=== PATIENT | male | born 1980 | race Caucasian/White ===

== ENCOUNTER 2023-07-06 00:53 | Emergency (ER) | payer OTHER, SELFPAY ==
[2023-07-06 00:54] VITALS: BMI 22.0
[2023-07-06 01:00] VITALS: BP 137/98
[2023-07-06 01:27] LABS: Urine Albumin Negative (Neg - Trace); Urine Bilirubin Negative (Negative); Urine Character Clear (Clear); Urine Color Yellow; Urine Glucose Negative (Negative); Urine Ketone Trace (Negative); Urine Leukocyte Negative (Negative); Urine Nitrite Negative (Negative); Urine Occult Blood Negative (Negative); Urine Specific Gravity 1.025 (<1.030); Urine Urobilinogen Negative (Neg - 1+)
[2023-07-06 03:27] VITALS: BP 131/78
--- NOTE | 2023-07-06 03:55 | ED.GENMED ---
History of Present Illness
<SENG Hoang - Last Filed: 07/06/23 06:25>
General
Chief Complaint: Flank Pain
Source: patient and records
Exam Limitations: none
Time Seen by Provider: 07/06/23 03:44
Travel History
Have you had any contact with someone who has COVID-19?: No
Do you have any symptoms of coronavirus? Fever > 100 degrees, chills, cough, shortness of breath, sore throat, loss of taste or smell, muscle aches, or headache?: No
History of Present Illness
History of Present Illness:
43 year old male with hx of kidney stones who presents with sudden onset of L flank pain that began at 1300 Monday. Pain is nonradiating, sharp, and 8/10 in sensation. States between 5196-4303 pain was intermittent. From 1999 to 99 pain was
constant. Currently, pt denies any pain. States he is monitoring his pain and has been pain free for about 20 minutes. Pain feels like previous kidney stone pain in 2019. He has not had any pain since then. Pt took Ibuprofen with minimal relief of
his symptoms. States walking and movement helps alleviate the pain. Denies fevers/chills, n/v/d, dysuria, hematuria.
Records review shows pt had a similar episode of L flank pain in 2019. At the time, CT showed 2-3 mm stone at L uterovesical junction and small nonobstructing lower pole R renal calculi. Pt had laser lithotripsy, insertion of R double-J ureteral
stent, and R retrograde pyelogram.
Past History
<SENG Hoang - Last Filed: 07/06/23 06:25>
Past History
ED Past Medical History: None
Social History
Tobacco: Non-smoker
Alcohol: None
Drug: None
Living: with family
Review of Systems
<SENG Hoang - Last Filed: 07/06/23 06:25>
Review of Systems
Allergies reviewed?: Yes
All Other Systems: ROS reviewed and negative except as documented in HPI and ROS
Constitutional: Reports no symptoms
EENT: Reports no symptoms
Respiratory: Reports no symptoms
Cardiac: Reports no symptoms
ABD/GI: Reports abdominal pain (L flank)
: Reports no symptoms
Musculoskeletal: Reports no symptoms
Skin: Reports no symptoms
Neurological: Reports no symptoms
Endocrine: Reports no symptoms
Hematologic/Lymphatic: Reports no symptoms
Psychiatric: Reports no symptoms
Phy Exam
<SENG Hoang - Last Filed: 07/06/23 06:25>
General Physical Exam
General Presentation: well appearing and no apparent distress
General age: appears stated age
General Skin: warm and dry
General Habitus: normal
General Mental: alert
General Hydration: appears well hydrated
Cardiovascular Exam
Cardiovascular Exam: regular rate/rhythm, no edema, no gallop and no murmur
Pulmonary Exam
Pulmonary Exam: lungs clear, no respiratory distress, no rales, no crackles, no rhonchi, no wheezing and no cough
Gastrointestinal Exam
Gastrointestinal Exam: normal bowel sounds, non tender, soft, no organomegaly, no pulsatile mass, non distended and no cva tenderness
Neurological Exam
Neurological Exam: alert and oriented x3
Skin Exam
Skin Exam: normal color and warm/dry
Psychiatric Exam
Psychiatric Exam: normal mood/affect
Course
<SENG Hoang - Last Filed: 07/06/23 06:25>
Orders/Labs/Results
Orders:
Orders
07/06/23 01:06
Urinalysis Reflex To Culture Urgent
Date Specimen was Collected: 07/06/23
Time Specimen was Collected: 01:04
07/06/23 04:20
CT Abd/pel Without Iv Or Oral Urgent
Comment:
Reason For Exam: acute left flank pain
07/06/23 05:06
Ketorolac [Toradol] 30 mg IV NOW STA
07/06/23 05:32
Basic Metabolic Panel Urgent
Abnormal Lab Results
07/06/23
01:06
Urine Ketones Trace A
(Negative)
07/06/23 05:32
Vital Signs
Initial and Last Documented VS:
Initial Vital Signs
Temp Pulse Resp BP Pulse Ox
98.8 F 74 16 137/98 99
07/06/23 01:00 07/06/23 01:00 07/06/23 01:00 07/06/23 01:00 07/06/23 01:00
Last Documented Vital Signs
Temp Pulse Resp BP Pulse Ox
97.7 F 84 16 123/81 100
07/06/23 04:42 07/06/23 04:42 07/06/23 04:42 07/06/23 04:42 07/06/23 04:42
<Jenise Gant, DO - Last Filed: 07/06/23 06:26>
Orders/Labs/Results
Orders:
Orders
07/06/23 01:06
Urinalysis Reflex To Culture Urgent
Date Specimen was Collected: 07/06/23
Time Specimen was Collected: 01:04
07/06/23 04:20
CT Abd/pel Without Iv Or Oral Urgent
Comment:
Reason For Exam: acute left flank pain
07/06/23 05:06
Ketorolac [Toradol] 30 mg IV NOW STA
07/06/23 05:32
Basic Metabolic Panel Urgent
Abnormal Lab Results
07/06/23
01:06
Urine Ketones Trace A
(Negative)
07/06/23 05:32
Vital Signs
Initial and Last Documented VS:
Initial Vital Signs
Temp Pulse Resp BP Pulse Ox
98.8 F 74 16 137/98 99
07/06/23 01:00 07/06/23 01:00 07/06/23 01:00 07/06/23 01:00 07/06/23 01:00
Last Documented Vital Signs
Temp Pulse Resp BP Pulse Ox
97.7 F 84 16 123/81 100
07/06/23 04:42 07/06/23 04:42 07/06/23 04:42 07/06/23 04:42 07/06/23 04:42
<SENG Hoang - Last Filed: 07/06/23 06:25>
MDM/Problems Addressed
Differential Diagnosis Includes:
L kidney stone
MDM/Problems Addressed:
43 year old male who presents with L kidney pain that began 1299.
Chronic conditions affecting care: Other
<SENG Hoang - Last Filed: 07/06/23 06:25>
*Critical Care Note
Total Time (30-74mins, 75-104mins- exclusive of procedures): Not Applicable
<Jneise Gant DO - Last Filed: 07/06/23 06:26>
*Radiology
Radiology exam reviewed: radiology read reviewed
*Pulse Oximetry
Patient hypoxic: no
ED Attending Note
<SENG Hoang - Last Filed: 07/06/23 06:25>
-
Portions of this chart may have been created with voice recognition software.� Occasional wrong word or��sound alike� substitutions may have occurred due to the inherent limitations of voice recognition software.
<Jenise Gant DO - Last Filed: 07/06/23 06:26>
ED Attending Note
Patient seen and examined by attending physician: Yes
I performed the substantive portion of visit, reviewed & personally made and approve the management plan that is documented in note by myself or CHANELLE.: Yes
I performed a history and physical exam of patient and discussed management with resident, I reviewed resident's note and agree with documented findings and plan of care.: Yes
ED Attending Note:
This is a 43-year-old gentleman who has history of a kidney stones, last occurrence 2019 where he required lithotripsy, stone extraction and stent placement.
He complains of left flank pain intermittent since yesterday afternoon, moderate to severe tonight. Left flank pain is nonradiating, no other associated symptoms. He denies nausea or vomiting, no diarrhea or constipation, no diaphoresis, no fever
nor chills. He denies dysuria and urgency and or hematuria.
He did take ibuprofen 800 mg around midnight with moderate improvement but pain woke him from sleep prompting ED visit.
Left flank pain feels similar to previous episodes of renal colic.
Currently comfortable and near pain-free.
GENERAL: Alert , in no apparent distress
EYE: anicteric
NECK: Supple, nontender, no meningismus, no significant adenopathy.
ENT: oral mucosa is moist. No rhinorrhea.
CARDIAC: Regular rate and rhythm. no murmur.
LUNGS: Clear breath sounds bilaterally, no acute respiratory distress, no wheezes/rales/rhonchi
ABDOMEN: Soft, nondistended, without focal tenderness, no r/g, no cvat. normoactive BS.
NEUROLOGICAL: Alert and oriented x3, no focal neuro deficits. Gait is daniels and steady.
SKIN: Warm and dry, normal color, skin intact. No rash.
MUSCULOSKELETAL: No C/C/E. peripheral pulses are full and equal b/l. No palpable tenderness.
PSYCH: Normal and appropriate interaction.
Concern for renal colic on the left. Other consideration is musculoskeletal pain.
Urinalysis is unremarkable showing trace ketones but otherwise negative.
Will continue to monitor for return of pain and will plan for CT abdomen pelvis
07/06/2023 0619 AM
Patient did have return of pain which has since resolved after an IV dose of Toradol.
CAT scan is unremarkable, no obstructing renal calculi nor hydronephrosis. There is note of a nonobstructing stone within the inferior pole of the right kidney. There is no bowel stranding nor evidence of obstruction. No abdominal aortic
aneurysm. Unremarkable gallbladder bile ducts and pancreas.
I suspect left flank pain may be musculoskeletal in nature. Patient has been working outdoors in his yard, gardening.
Chemistries are within normal limits.
Recommend he continue with ibuprofen, he can add local heat to his back.
Gentle stretching exercises.
Prompt follow-up with PCP for recheck.
Discharge Plan
Departure
Patient Disposition: Home (Routine Discharge)
Date of Disposition: 07/06/23
Time of Disposition: 06:24
Patient with high blood pressure during this ER visit?: No
Condition: Good
Discharge Problem:
Acute left flank pain
Instructions: Flank Pain (DC)
Prescriptions:
No Action
No Current Medications
tamsulosin 0.4 MG capsule
0.4 mg PO DAILY Qty: 21 0RF
phenazopyridine 200 MG tablet
200 mg PO TIDPRN PRN (Reason: bladder irritation) Qty: 30 0RF
Referrals:
García Yang PA-C [Specified Professional Personl] - Call in 1-3 days for appt
UNKNOWN - PT DOES,NOT KNOW [Family Provider] -
Interventions
Interventions:
*Risk Screen - Suicide Last Done: 07/06/23 01:00
*General Assessment Last Done: 07/06/23 01:00
*Neglect/Abuse Screening Last Done: 07/06/23 01:00
ED- Fall Risk Assessment Last Done: 07/06/23 03:26
IN-Pxywud-Geutljphpf Assessment Last Done: 07/06/23 03:26
ED-Male Genitourinary Assessment Last Done: 07/06/23 03:26
Discharge Date and Time
Print Language: ROMANSH
[2023-07-06 04:42] VITALS: BP 123/81
[2023-07-06] MEDS: TORADOL 30 MG IV (05:31)
[2023-07-06 05:52] LABS: Blood Urea Nitrogen 16 mg/dl (9-20); Calcium 9.9 mg/dl (8.4-10.2); Carbon Dioxide 28 mmol/L (22-30); Chloride 103 mmol/L (98-107); Estimated Creatinine Clearance > 125 ml/min; Glucose 98 mg/dl (70-99); Potassium 4.1 mmol/L (3.5-5.1); Sodium 137 mmol/L (135-145); eGFR > 60.00
[2023-07-06 06:41] VITALS: BP 124/82
[2023-07-06] MEDS: LIDOCAINE 4% PATCH 1 PATCH TOPICAL (07:09)
[2023-07-06 07:42] VITALS: BP 142/82
== END 2023-07-06 07:44 | disposition home or self-care (01) ==
LOC: EMR 00:53
PROVIDERS: EMERGENCY PHYSICIAN Emergency Medicine
DX: R10.9 Unspecified abdominal pain (principal); N20.0 Calculus of kidney; Z87.442 Personal history of urinary calculi; Z91.030 Bee allergy status
CPT/HCPCS: 99284; 96374; 74176; 80048; 81003